=== PATIENT | male | born 1955 | race Caucasian/White ===

== ENCOUNTER 2016-07-13 01:08 | Emergency (ER) | payer BC ==
--- NOTE | 2016-07-13 01:58 | EDM.PDOC ---
ED HISTORY OF PRESENT ILLNESS - General Chief Complaint: Cardiovascular Problem Stated Complaint: "something is not right with my heart" Time Seen by Provider: 07/13/16 01:38 Source of Information: Reports: Patient History Limitations: Reports: No limitations - History of Present Illness INITIAL COMMENTS - FREE TEXT/NARRATIVE: This patient is a 61 year old male that presents to the ER. Patient reports that for the last 3 days he has had "something wrong with my heart." The patient reports that over the past 3 days it has become worse and then tonight he just could not sleep. Patient reports he has a pain ache in his right upper back in the right shoulder region. Patient reports that he has some nausea. Patient reports sensation of "something wrong with my heart." I don't know, just something isnt right with my heart." The patient is not able to describe the sensation and his complaints are vague. He denies that he has pain in his chest. He asks if he is currently in A-fib. He says thats about what it feels like. The patient reports some mild diarrhea. He also reports some mild congestion. The patient also reports that certain movements and different positions make his back pain worse. He denies any injury. The patient is alert and oriented. He does not appear to be in acute distress. The patient complaint is vague and not a good description. The patient does deny headache, dizziness, vomiting, fever, cough, neck pain, neck stiffness, pain in chest, shortness of breath, abdominal pain, urinary/bowel changes, rashes. Symptom Onset Date: 07/10/16 Timing/Duration: Reports: Day(s): (3), Getting worse Severity: moderate Quality: Reports: Ache Improves with: Reports: None Worsens with: Reports: None Associated Symptoms (General): Reports: nausea/vomiting. Denies: confusion, chest pain, cough, cough w sputum, diaphoresis, fever/chills, headaches, loss of appetite, malaise, rash, seizure, shortness of breath, syncope, weakness - Related Data Allergies/ADRs: Allergies Allergy/AdvReac Type Severity Reaction Status Date / Time No Known Allergies Allergy Verified 07/13/16 01:21 Home Meds: Home Meds Cholecalciferol (Vitamin D3) [Vitamin D3] 5 cap PO DAILY 06/21/14 [History] Meloxicam [Meloxicam] 15 mg PO DAILY 06/21/14 [History] Metoprolol Tartrate [Lopressor] 50 mg PO BID 06/21/14 [History] Sildenafil [Viagra] 1 tab PO ASDIRECTED PRN 06/21/14 [History] atorvaSTATin Calcium [Atorvastatin Calcium] 5 mg PO DAILY 06/21/14 [History] Magnesium Amino Acid Chelate [Magnesium] 500 mg PO DAILY 06/22/14 [History] Ascorbic Acid [Vitamin C] 1,000 mg PO DAILY 07/13/16 [History] Aspirin [Ecotrin] 325 mg PO DAILY 07/13/16 [History] Levothyroxine Sodium [Levothyroxine Sodium] 1 tab PO DAILY 07/13/16 [History] Omeprazole Magnesium [Prilosec Otc] 20 mg PO DAILY 07/13/16 [History] Past Medical History HEENT History: Reports: Other (see below) Other HEENT History: retinal mypathy Cardiovascular History: Reports: Afib, High cholesterol, Hypertension Gastrointestinal History: Reports: GERD, PUD Genitourinary History: Reports: Other (see below) Other Genitourinary History: has a cyst on kidney that was found a year ago; just watching it for now Musculoskeletal History: Reports: Arthritis Endocrine/Metabolic History: Reports: Hyperthyroidism, Other (see below) Other Endocrine/Metabolic History: radioactive isotope for thyroid Oncologic (Cancer) History: Reports: Leukemia - Past Surgical History HEENT Surgical History: Reports: None Cardiovascular Surgical History: Reports: None GI Surgical History: Reports: Hernia repair/other Male Surgical History: Reports: None Endocrine Surgical History: Reports: None Musculoskeletal Surgical History: Reports: Other (see below) Other Musculoskeletal Surgeries/Procedures:: surgery for ruptured disc in the Social & Family History - Tobacco Use Smoking Status *Q: Never Smoker ED [facility] GENER[facility] - Review of Systems Review Of Systems: See Below Constitutional: Reports: no symptoms HEENT: Reports: Sinus problem (congestion) Respiratory: Reports: No Symptoms Cardiovascular: Reports: Other (Denies chest pain. "Something is not right with my heart." "Am I in A-fib?"). Denies: Chest pain Endocrine: Reports: no symptoms GI/Abdominal: Reports: Diarrhea, Nausea. Denies: Abdominal pain, Black stool, Bloody stool, Vomiting : Reports: no symptoms Musculoskeletal: Reports: shoulder pain (right made worse with movement: posterior. ), back pain (right upper posterior: made worse with movement.) Skin: Reports: no symptoms Neurological: Reports: No Symptoms Psychiatric: Reports: No symptoms Hematologic/Lymphatic: Reports: no symptoms Immunologic: Reports: no symptoms ED EXAM, GENERAL - Physical Exam Exam: See Below Exam Limited By: No limitations General Appearance: alert, WD/WN, no apparent distress, anxious Eye Exam: bilateral eye: normal inspection, PERRL Ears: normal external exam, normal canal, hearing grossly normal, normal TMs Ear Exam: bilateral ear: auricle normal, canal normal, TM normal Nose: normal inspection, normal mucosa, no blood Throat/Mouth: Normal inspection, Normal lips, Normal teeth, Normal gums, Normal oropharynx, Normal voice, No airway compromise Head: atraumatic, normocephalic Neck: normal inspection, supple, non-tender, full range of motion Respiratory/Chest: no respiratory distress, lungs clear, normal breath sounds, no accessory muscle use, chest non-tender Cardiovascular: normal peripheral pulses, regular rate, rhythm, no edema, no gallop, no JVD, no murmur, no rub Peripheral Pulses: 2+: radial (L), radial (R), posterior tibial (L), posterior tibial (R), dorsalis pedis (L), dorsalis pedis (R) GI/Abdominal: soft, non tender, no organomegaly, no distention, no abnormal bruit, no mass Back Exam: normal inspection, full range of motion, other (pain of right upper back made worse with movement and twisting of the upper back. ). No: CVA tenderness (L), CVA tenderness (R), decreased range of motion, muscle spasm, paraspinal tenderness, vertebral tenderness Extremities: normal inspection, normal range of motion, non-tender, no pedal edema, normal capillary refill, other (pain of the posterior and anterior shoulder right made worse with ROM. ) Neurological: alert, oriented, CN II-XII intact, normal cognition, normal gait, no motor/sensory deficits Psychiatric: normal mood, anxious Skin Exam: Warm, Dry, Intact, Normal color, No rash Lymphatic: no adenopathy EKG INTERPRETATION EKG Date: 07/13/16 Time: 01:15 Rhythm: NSR Rate (beats/min): 70 [place]: normal P-wave: present QRS: normal ST-T: normal QT: normal Comparison: no change (05/26/15) EKG Interpretation Comments: Low Voltage. Course - Vital Signs Last Recorded V/S: Last Vital Signs Temp 97.1 F 07/13/16 02:39 Pulse 62 07/13/16 02:39 Resp 16 07/13/16 02:39 BP 134/75 07/13/16 02:39 Pulse Ox 97 07/13/16 02:39 - Orders/Labs/Meds Orders: Active Orders 24 hr Category Date Time Status EKG Documentation Completion [RC] STAT Care 07/13/16 01:15 Active Chest 2V [CR] Stat Exams 07/13/16 01:48 Ordered Labs: Laboratory Tests 07/13/16 07/13/16 07/13/16 Range/Units 01:48 01:48 01:48 WBC 9.4 (5.0-10.0) 10^3/uL RBC 4.77 (4.50-6.00) 10^6/uL Hgb 15.4 (14.0-18.0) g/dL Hct 44.2 (40.0-54.0) % MCV 92.7 (82.0-94.0) fL MCH 32.3 H (27.0-32.0) pg MCHC 34.8 (33.0-38.0) g/dL RDW Coeff of Jose A 12.3 (11.0-15.0) % Plt Count 136 L (150-400) 10^3/uL Neut % (Auto) 79.7 (35-85) % Lymph % (Auto) 10.3 (10-55) % Dunn % (Auto) 8.9 (0-16) % Eos % (Auto) 0.9 (0-5) % Baso % (Auto) 0.2 (0-3) % Neut # (Auto) 7.46 H (1.80-7.00) 10^3/uL Lymph # (Auto) 0.96 L (1.00-4.80) 10^3/uL Dunn # (Auto) 0.83 H (0.00-0.80) 10^3/uL Eos # (Auto) 0.08 (0.00-0.45) 10^3/uL Baso # (Auto) 0.02 10^3/uL PT 10.4 (9.7-12.3) SEC INR 0.96 (0.92-1.18) Sodium 141 (136-145) mEq/L Potassium 4.2 (3.5-5.0) mEq/L Chloride 104 (98-106) mEq/L Carbon Dioxide 28 (21-32) mmol/L BUN 17 (7-18) mg/dL Creatinine 1.1 (0.7-1.3) mg/dL Est Cr Clr Drug Dosing 79.70 mL/min Estimated GFR (MDRD) > 60 (>=60) mL/min Glucose 106 H (75-99) mg/dL Calcium 8.7 (8.4-10.1) mg/dL Total Bilirubin 0.5 (0.0-1.0) mg/dL AST 11 L (15-37) U/L ALT 21 (12-78) U/L Alkaline Phosphatase 82 (46-116) U/L Creatine Kinase 34 L (35-232) U/L Troponin I < 0.017 (0.00-0.06) ng/mL Total Protein 6.7 (6.4-8.2) g/dL Albumin 3.8 (3.4-5.0) g/dL TSH, Ultra Sensitive 2.51 (0.36-5.60) uIU/mL Meds: Medications Discontinued Medications Generic Name Dose Route Start Last Admin Trade Name Freq PRN Reason Stop Dose Admin Lorazepam 1 mg 07/13/16 02:53 Ativan IM 07/13/16 02:54 ONETIME ONE Morphine Sulfate 4 mg 07/13/16 02:05 07/13/16 02:16 Morphine IM 07/13/16 02:06 4 mg ONETIME ONE Administration Ondansetron HCl 4 mg 07/13/16 02:05 07/13/16 02:13 Zofran Odt PO 07/13/16 02:06 4 mg ONETIME ONE Administration - Radiology Interpretation Free Text/Narrative:: CXR: No infiltrates, no cardiomegaly, no pulmonary edema. - Re-Assessments/Exams Free Text/Narrative Re-Assessment/Exam: 07/13/16 02:56 Patient reports he does feel more relaxed after Morphine, but still has some discomfort. I will give him some Ativan IM to help him relax a little more due to anxious appearing. I reviewed labs which are unremarkable. I have faxed EKG to [facility] for insurance healthcare consultant to review. No ST elevation. Spoe to [employer] Dr. Murphy, unremarkable EKG and unremarkable cardiac presentation. Will discharge. Departure - Departure Time of Disposition: 02:54 Disposition: Home, Self-Care 01 Condition: good Clinical Impression: Atypical chest pain, Musculoskeletal back pain Instructions: Nonspecific Chest Pain, [id number] Referrals: Lester Toro MD [Primary Care Provider] - Forms: ED Department Discharge Additional Instructions: Followup with your primary care provider Friday Return to the ER for worsening of condition or any emergent concerns Go home and rest - My Orders Last 24 Hours: My Active Orders 07/13/16 01:15 EKG Documentation Completion [RC] STAT 07/13/16 01:48 Chest 2V [CR] Stat - Assessment/Plan Last 24 Hours: My Active Orders 07/13/16 01:15 EKG Documentation Completion [RC] STAT 07/13/16 01:48 Chest 2V [CR] Stat Plan: PLEASE USE RN NOTE FOR PFSH.
[2016-07-13] MEDS ORDERED: Morphine 4 MG/ML Syringe IM ONE (02:05)
[2016-07-13] MEDS ORDERED: Ondansetron 4 MG Tab.DIS PO ONE (02:05)
[2016-07-13 02:39] VITALS: BP 134/75
[2016-07-13 02:43] LABS: CHLORIDE,CL 104 mEq/L (98-106); SODIUM,NA 141 mEq/L (136-145)
[2016-07-13] MEDS ORDERED: LORazepam 2 MG/ML Syringe IM ONE (02:53)
== END 2016-07-13 03:15 | disposition home or self-care (01) ==
LOC: CC.ED 01:08
DX: R07.89 Other chest pain (principal); M54.6 Pain in thoracic spine; M25.511 Pain in right shoulder; I48.91 Unspecified atrial fibrillation; E78.00 Pure hypercholesterolemia, unspecified; I10 Essential (primary) hypertension; K21.9 Gastro-esophageal reflux disease without esophagitis; M19.90 Unspecified osteoarthritis, unspecified site; E05.90 Thyrotoxicosis, unspecified without thyrotoxic crisis or storm; Z79.82 Long term (current) use of aspirin; Z79.899 Other long term (current) drug therapy
CPT/HCPCS: 36415; 71020; 80053; 82550; 84443; 84484; 85025; 85610; 93005; 96372; 99285; A9270; J2060; J2270

== ENCOUNTER → 2020-02-18 | Day surgery (SDC) | payer BC ==
[~2020-02-18] MED LIST: Ketamine 200 MG/20 ML MDV ONE; Lactated Ringers 1,000 ML IV ONE; Metoprolol Tartrate 5 MG/5 ML SDV ONE; Propofol 200 MG/20 ML SDV ONE; fentaNYL 100 MCG/2 ML SDV ONE
--- NOTE | 2020-02-18 14:10 | OR ---
DATE OF OPERATION: 02/18/2020 PREOPERATIVE DIAGNOSIS: FAMILY HISTORY OF COLON CANCER. POSTOPERATIVE DIAGNOSIS: FAMILY HISTORY OF COLON CANCER. SURGEON: French Art MD PROCEDURE: FULL-LENGTH COLONOSCOPY WITH FORCEPS POLYP REMOVAL X1. ANESTHESIA: MAC. COMPLICATIONS: None. SPECIMEN: Small sessile polyp, 3 mm, mid sigmoid colon. FINDINGS: 1. Full-length colonoscopy. 2. 3 mm sessile polyp, sigmoid colon. RECOMMENDATIONS: Followup colonoscopy in 5 years. INDICATIONS: The patient has a family history of colon cancer in his mother. He is due for a 5-year surveillance scope. DESCRIPTION OF PROCEDURE: The patient was prepped and draped, placed in the left lateral decubitus position. A lubricated Olympus colonoscope inserted and easily advanced to the cecum. Direct visualization of the ileocecal valve and appendiceal orifice was accomplished. The bowel prep was excellent. Upon withdrawal of the scope, the cecum, ascending, transverse, and descending colons were completely benign. In the mid sigmoid colon around 45 cm, the patient had a small 3 to 4 mm sessile polyp, removed in its entirety with a cold forceps. The rest of the sigmoid and rectosigmoid junction appeared benign. Rectal vault was unremarkable. There was more stool here, it was a little hard to see the entire rectal vault, but it appeared unremarkable. There was solid stool which prevented complete suctioning. Retroflexion in the rectum was accomplished and the perianal region showed some hemorrhoidal disease, but otherwise benign. Air was then suctioned, scope removed without complication. GLENN/GISELLA /[id number]
[2020-02-18 14:31] VITALS: BP 114/65; PULSE 87
== END ==
LOC: CC.SDS 12:22
PROVIDERS: ATTEND Family Medicine
DX: Z12.11 Encounter for screening for malignant neoplasm of colon (principal); K63.5 Polyp of colon; K64.9 Unspecified hemorrhoids; I48.91 Unspecified atrial fibrillation; N40.1 Benign prostatic hyperplasia with lower urinary tract symptoms; R35.1 Nocturia; N52.9 Male erectile dysfunction, unspecified; K21.9 Gastro-esophageal reflux disease without esophagitis; E78.5 Hyperlipidemia, unspecified; I10 Essential (primary) hypertension; E03.9 Hypothyroidism, unspecified; Z79.899 Other long term (current) drug therapy; Z79.890 Hormone replacement therapy; Z80.0 Family history of malignant neoplasm of digestive organs; Z79.82 Long term (current) use of aspirin; Z01.812 Encounter for preprocedural laboratory examination; Z20.828 Contact with and (suspected) exposure to other viral communicable diseases
CPT/HCPCS: 00812; J2704; J3010; J3490; J7120

== ENCOUNTER 2025-02-18 07:58 | Day surgery (SDC) | payer MEDICARE, BC ==
[2025-02-18] MEDS: Lactated Ringers 1,000 ML IV SCH (08:17)
[2025-02-18] MEDS ORDERED: Ketamine 200 MG/20 ML MDV ONE (08:31)
[2025-02-18] MEDS ORDERED: fentaNYL 50 MCG/ML SDV ONE (08:31)
[2025-02-18] MEDS ORDERED: Propofol 200 MG/20 ML SDV ONE (08:31)
[2025-02-18 12:26] VITALS: BP 109/55; PULSE 61
== END 2025-02-18 09:40 | disposition home or self-care (01) ==
LOC: CC.SDS 07:58
PROVIDERS: ATTEND Family Medicine
DX: Z12.11 Encounter for screening for malignant neoplasm of colon (principal); E78.5 Hyperlipidemia, unspecified; I10 Essential (primary) hypertension; E03.9 Hypothyroidism, unspecified; I48.91 Unspecified atrial fibrillation; Z80.0 Family history of malignant neoplasm of digestive organs; Z79.82 Long term (current) use of aspirin; Z79.899 Other long term (current) drug therapy; Z79.890 Hormone replacement therapy
CPT/HCPCS: J2704; J3010; J3490; J7120